=== PATIENT | female | born 1985 | race Caucasian/White ===

== ENCOUNTER 2017-07-12 12:59 | Outpatient (CLI) | payer BC, MEDICAID ==
--- NOTE | 2017-07-12 15:41 | ULT ---
OBSTETRICAL ULTRASOUND: Date: 07-12-17 History: 31-year-old female undergoing anatomic screening. Technique: Multiplanar grayscale sonographic imaging of the gravid uterus obtained. FINDINGS: Cervical length is 5.4 cm. presentation is transverse with head to maternal right. heart rate is 149 beats/minute. urinary bladder, umbilical cord insertion, stomach, heart, kidneys, nose, and lips, intracrania l contents, umbilical cord, and spine appear within normal limits. Amniotic fluid index is 13.6 cm, within normal limits. biometry: BPD 5.2 cm 21 weeks 4 days HC 19.0 cm 21 weeks 2 days AC 17.9 cm 22 weeks 5 days FL 3.7 cm 21 weeks 4 days Average age based on ultrasound is 21 weeks 4 days. Estimated date of delivery is 11-18-17. Estimated f etal weight is 479 grams, +/- 71 grams. IMPRESSION: Single intrauterine gestation as detailed above. No abnormalities noted. POS: [facility]
== END 2017-07-12 13:00 | disposition home or self-care (01) ==
LOC: ULT 12:59
PROVIDERS: ATTEND Family Medicine
DX: Z34.82 Encounter for supervision of other normal pregnancy, second trimester (principal); Z3A.21 21 weeks gestation of pregnancy
CPT/HCPCS: 76805

== ENCOUNTER 2017-11-12 09:13 | Outpatient (CLI) | payer BC, OTHER | END 2017-11-12 09:14 | disposition home or self-care (01) | LOC: BICULT 09:13 | PROVIDERS: ATTEND Family Medicine | DX: O36.63X0 Maternal care for excessive fetal growth, third trimester, not applicable or unspecified (principal) | CPT/HCPCS: 76805 ==

== ENCOUNTER 2017-11-20 10:30 | Inpatient (IN) | payer BC, OTHER ==
[~2017-11-20 10:30] MED LIST: Dexamethasone 20 MG/5 ML VIAL ONE; Ketorolac Tromethamine 30 MG/ML VIAL ONE; Ondansetron HCl/PF 4 MG/2 ML Vial ONE
[2017-11-20] MEDS: Lactated Ringer's 1,000 ML IV SCH ×2 (12:40→13:35)
[2017-11-20] MEDS ORDERED: Ondansetron HCl/PF 4 MG/2 ML Vial IVP PRN ×4 (12:59→16:38)
[2017-11-20] MEDS ORDERED: Bicitra 30 ML UDCUP PO SCH (12:59)
[2017-11-20] MEDS ORDERED: Promethazine HCl 25 MG/ML VIAL IM PRN ×2 (12:59→14:50)
[2017-11-20] MEDS ORDERED: CEFAZOLIN/Water 2 GM/20 ML SYRINGE SLOW IVP SCH (12:59)
[2017-11-20 13:13] VITALS: BMI 29.0
[2017-11-20 13:15] LABS: Hemoglobin 12.6 g/dL (12.0-16.0); Mean Corpuscular HGB CONC 34.5 g/dL (32.0-36.0); Mean Corpuscular Hemoglobin 30.5 pg (27.0-31.0); Mean Corpuscular Volume 88.3 fL (78.0-98.0); Mean Platelet Volume 10.4 fL (7.4-10.4); Platelet Count 156 thou/uL (130-400); RBC Distribution Width 13.6 % (11.5-14.5); Red Blood Cell (RBC) Count 4.13 mill/uL (4.20-5.40); White Blood Cell (WBC) Count 10.6 thou/uL (4.8-10.8)
[2017-11-20] MEDS ORDERED: Bupivacaine 0.75% W/DEXTROSE 8.25% 2 ML AMP ONE (13:38)
[2017-11-20] MEDS ORDERED: PHENYLEPHRINE-NS 100 MCG/ML 10 ML SYRINGE ONE (13:38)
[2017-11-20] MEDS ORDERED: Morphine PF 1 MG/ML SYR ONE (13:38)
[2017-11-20] MEDS ORDERED: Dexamethasone 4 mg/ml Vial ONE (13:38)
[2017-11-20] MEDS ORDERED: Oxytocin 10 UNITS/ML VIAL ONE ×4 (13:38→14:43)
[2017-11-20] MEDS ORDERED: Ketorolac Tromethamine 30 MG/ML VIAL ONE (13:38)
[2017-11-20] MEDS ORDERED: Ondansetron HCl/PF 4 MG/2 ML Vial ONE (13:38)
[2017-11-20] MEDS ORDERED: Lidocaine 1% PF 5 ML VIAL ONE (13:39)
[2017-11-20 13:52] LABS: HBSAg Index 0.24 S/CO (0-0.99); Hep B Surf Ag Non-Reactive S/CO (NonReactive); Syphilis Antibody Nonreactive (Nonreactive); Syphilis Antibody Index 0.04 S/CO (<1.00 Non-Reactive)
[2017-11-20] MEDS ORDERED: Midazolam HCl 2 mg/2 ml Vial ONE (14:19)
--- NOTE | 2017-11-20 14:48 | PDOC.EVN ---
Event Note - Event Note Event Note: This is documentation that I was 1st assist on the repeat for Ms Pb Crook. Primary surgeon is Dr Ronda Toussaint. For complete details please refer to her dictated note.
[2017-11-20] MEDS ORDERED: diphenhydrAMINE 50 MG/ML VIAL IVP PRN (14:50)
[2017-11-20] MEDS ORDERED: Promethazine HCl 25 MG SUPP PR PRN (14:50)
[2017-11-20] MEDS ORDERED: HYDROmorphone 2 MG/ML VIAL SLOW IVP PRN (14:50)
[2017-11-20] MEDS ORDERED: Eucerin (Mineral Oil/Petrolatum,White) 30 gm Jar TOP PRN (14:50)
[2017-11-20] MEDS ORDERED: Naloxone HCl 0.4 mg/ml Vial IV PRN (14:50)
[2017-11-20] MEDS ORDERED: Naloxone HCl 0.4 mg/ml Vial IVP PRN ×2 (14:50)
[2017-11-20] MEDS ORDERED: Meperidine HCl/PF 25 MG/ML VIAL SLOW IVP PRN (14:50)
[2017-11-20] MEDS ORDERED: Communication Order-Pharmacy FS SCH (15:00)
[2017-11-20] MEDS ORDERED: Simethicone Chewable 80 MG TAB PO PRN (16:38)
[2017-11-20] MEDS ORDERED: diphenhydrAMINE 25 MG CAP PO PRN (16:38)
[2017-11-20] MEDS ORDERED: Lanolin Ointment 7 GM TUBE TOP PRN (16:38)
[2017-11-20] MEDS ORDERED: Lactated Ringer's 1,000 ML IV SCH (16:38)
[2017-11-20] MEDS ORDERED: Bisacodyl 10 MG SUPP PR PRN (16:38)
[2017-11-20] MEDS ORDERED: Acetaminophen 325 MG TAB PO PRN (16:45)
[2017-11-20] MEDS: Ketorolac Tromethamine 30 MG/ML VIAL IVP PRN (20:57)
--- NOTE | 2017-11-20 21:30 | OP ---
DATE OF SERVICE: 11/20/2017 PREOPERATIVE DIAGNOSIS: Term intrauterine with previous section. POSTOPERATIVE DIAGNOSIS: Term intrauterine with previous section, status post del lia. PROCEDURE: Repeat low transverse section. SURGEON: Ronda Toussaint M.D. PNEUMATIC DRUM SANDER: Jean Burris DO and Ish Grant M.D. ANESTHESIA: Spinal anesthesia. COMPLICATION: None. PROCEDURE IN DETAIL: After adequate spinal anesthesia, the patient was placed in supine position. A Abel catheter was placed in her bladder. The abdomen was prepped and draped in the usual sterile t echnique, noted that a wedge had been placed in her right flank. A Pfannenstiel incision was made th rough the old scar, subcutaneous tissue with sharp dissection. Fascia opened with sharp dissection. Peritoneum opened with sharp and blunt dissection, noted that the abdomen was filled with a gravid u terus. An Thompson O retractor was placed and a bladder flap was incised inferiorly. A low transverse incision was made on the uterus. Membranes were ruptured. Clear fluid was encountered and a viable male infant was delivered from vertex presentation without difficulty. breathed and cried sp ontaneously. After approximately 30 seconds, the cord was clamped and handed to care of neona tology team. Cord blood was obtained and then placenta was delivered manually, appeared intact. A w et lap was used to wipe clean the uterus and hysterotomy edges were grasped with ring forceps. Hyste rotomy was then closed in continuous fashion using 0 Monocryl sutures. Hemostasis was adequate. The re is no bleeding from the bladder flap. Peritoneal edges were then reapproximated with 2-0 Vicryl s uture, and the fascia was closed in continuous fashion using 0 Vicryl. Sponge and instrument counts were correct. Few of the bleeders were cauterized. The subcutaneous tissue was closed with 2-0 plai n and the skin was then closed using natasha. The patient tolerated the procedure well to go to the recovery room in good condition. Estimated blood loss approximately 400 mL. Quantitative blood loss is pending at this time. Note the baby is a viable male infant, weight 8 pounds, 13 ounces, Apgars 8 at 1 minute, 9 at 5 minutes in level 1 nursery without complications.
[2017-11-20] MEDS: Ferrous Sulfate 325 MG TAB PO SCH (23:35)
[2017-11-20] MEDS: Docusate Calcium (SURFAK) 240 MG CAP PO SCH (23:35)
[2017-11-21] MEDS ORDERED: Acetaminophen 325 MG TAB PO PRN (03:00)
[2017-11-21] MEDS ORDERED: Acetaminophen/Codeine 30-300mg Tablet PO PRN (03:00)
[2017-11-21] MEDS: Ketorolac Tromethamine 30 MG/ML VIAL IVP PRN (05:07)
[2017-11-21 05:29] LABS: Hemoglobin 11.2 g/dL (12.0-16.0); Mean Corpuscular HGB CONC 34.7 g/dL (32.0-36.0); Mean Corpuscular Volume 89.5 fL (78.0-98.0); Mean Platelet Volume 10.4 fL (7.4-10.4); Platelet Count 136 thou/uL (130-400); RBC Distribution Width 13.5 % (11.5-14.5)
[2017-11-21] MEDS: Ferrous Sulfate 325 MG TAB PO SCH (09:43)
[2017-11-21] MEDS: Docusate Calcium (SURFAK) 240 MG CAP PO SCH ×2 (09:45→21:39)
[2017-11-21] MEDS: Prenatal Vitamin 1 TAB PO SCH (09:45)
[2017-11-21] MEDS: Ibuprofen 800 MG TAB PO SCH (21:39)
[2017-11-22] MEDS: Ferrous Sulfate 325 MG TAB PO SCH ×3 (00:33→22:21)
[2017-11-22] MEDS: Ibuprofen 800 MG TAB PO SCH ×3 (06:52→22:21)
[2017-11-22] MEDS: Docusate Calcium (SURFAK) 240 MG CAP PO SCH ×2 (09:48→22:21)
[2017-11-22] MEDS: Prenatal Vitamin 1 TAB PO SCH (09:48)
[2017-11-22] MEDS: HYDROcodone/Acetaminophen 5/325 mg Tablet PO PRN ×2 (13:07→20:45)
[2017-11-23] MEDS: HYDROcodone/Acetaminophen 5/325 mg Tablet PO PRN (02:15)
[2017-11-23] MEDS: Ibuprofen 800 MG TAB PO SCH (06:14)
[2017-11-23] MEDS: Prenatal Vitamin 1 TAB PO SCH (09:36)
[2017-11-23] MEDS: Ferrous Sulfate 325 MG TAB PO SCH (09:36)
[2017-11-23] MEDS: Docusate Calcium (SURFAK) 240 MG CAP PO SCH (09:36)
[2017-11-23 11:53] VITALS: BP 120/69; TEMP 97.9
== END 2017-11-23 12:47 | disposition home or self-care (01) | DRG 766 ==
LOC: L&D 11:43 → 3SE 17:07
PROVIDERS: ADMIT Family Medicine; ATTEND Family Medicine
PROC: 10D00Z1 Extraction of Products of Conception, Low, Open Approach (ICD-10-PCS; principal; 2017-11-20)
DX: O34.211 Maternal care for low transverse scar from previous cesarean delivery (principal); Z3A.39 39 weeks gestation of pregnancy; Z37.0 Single live birth
CPT/HCPCS: 51702; 85027; 86780; 86850; 86900; 86901; 87340; J1100; J1885; J2001; J2250; J2274; J2405; J2590; J3490